=== PATIENT | female | born 1985 | race Asian ===

== ENCOUNTER 2016-11-13 12:47 | Emergency (ER) | payer OTHER ==
[~2016-11-13] VITALS: Ht 160 cm; Wt 61.2 kg
[2016-11-13 14:12] LABS: PLATELET COUNT 283 K/uL (152-353)
[2016-11-13 14:22] LABS: POTASSIUM 3.5 mmol/L (3.6-5.2); SODIUM 137 mmol/L (136-145)
[2016-11-13 14:26] LABS: PARTIAL THROMBOPLASTIN TIME 24.6 SECONDS (24.5-33.6)
[2016-11-13 17:05] VITALS: BP 110/66; TEMP 98.8
== END 2016-11-13 17:05 | disposition home or self-care (01) ==
LOC: ED 12:47
PROVIDERS: Emergency Medicine
DX: R07.89 Other chest pain (principal); J40 Bronchitis, not specified as acute or chronic
CPT/HCPCS: 36415; 80053; 82550; 82553; 83880; 84484; 85027; 85610; 85730; 93005; 99284

== ENCOUNTER 2017-04-22 11:28 | Outpatient (CLI) | payer OTHER | END 2017-04-22 11:30 | disposition home or self-care (01) | LOC: AMB 11:28 | DX: Z04.1 Encounter for examination and observation following transport accident (principal) ==